=== PATIENT | female | born 1965 | race Caucasian/White ===

== ENCOUNTER 2017-10-31 18:21 | Emergency (ER) | payer MEDICAID | END 2017-10-31 20:50 | disposition home or self-care (01) | LOC: D.ER 18:21 | DX: S22.32XA Fracture of one rib, left side, initial encounter for closed fracture (principal); W00.0XXA Fall on same level due to ice and snow, initial encounter; Y93.89 Activity, other specified; Y92.019 Unspecified place in single-family (private) house as the place of occurrence of the external cause; Z86.73 Personal history of transient ischemic attack (TIA), and cerebral infarction without residual deficits; J44.9 Chronic obstructive pulmonary disease, unspecified ==

== ENCOUNTER → 2019-02-25 13:47 | Outpatient (CLI) | payer MEDICAID | END | disposition home or self-care (01) | LOC: D.RT 13:47 | PROVIDERS: ATTEND Internal Medicine Pulmonary Disease | DX: J44.9 Chronic obstructive pulmonary disease, unspecified (principal) ==

== ENCOUNTER 2019-06-04 07:38 | Day surgery (SDC) | payer MEDICAID ==
[~2019-06-04] VITALS: Ht 152.4 cm; Wt 63.6 kg
[2019-06-04 07:59] LABS: HEMATOCRIT 38.4 % (36.0-48.0); MCH 27.9 pg (26.0-34.0); MCHC 33.9 g/dL (31.0-37.0); MCV 82.4 fL (80.0-100.0); MEAN PLATELET VOLUME 10.4 fL (7.4-10.4); RBC 4.66 10x6/uL (4.00-5.40); RDW 13.1 % (11.5-14.5); WBC 7.2 10x3/uL (4.8-10.8)
[2019-06-04 08:08] LABS: ANION GAP 12.5 mmol/L (8-16); CARBON DIOXIDE 28.9 mmol/L (21.0-32.0); CREATININE - SERUM 0.9 mg/dL (0.6-1.3); POTASSIUM - SERUM 4.4 mmol/L (3.5-5.1)
[2019-06-04 09:11] VITALS: BP 130/79; Ht 152.4 cm; Wt 63.6 kg
[2019-06-04] MEDS ORDERED: PREDNISONE10 MG (09:22)
[2019-06-04] MEDS ORDERED: ZONEGRAN100 MG PO (09:23)
[2019-06-04] MEDS ORDERED: TESSALON PERLE100 MG PO (09:24)
[2019-06-04] MEDS ORDERED: DOXYCYCLINE HY100 M2 PO (09:25)
[2019-06-04] MEDS ORDERED: VALIUM10 MG PO (09:25)
[2019-06-04] MEDS ORDERED: PHENERGAN25 M1 PO (09:26)
[2019-06-04] MEDS ORDERED: BREO ELLIPTA 11 EACH INH (09:26)
--- NOTE | 2019-06-04 11:03 | NUR ---
DC INSTRUCTIONS GIVEN TO PT/FAMILY. STATE UNDERSTANDING. DC'D IV CATH FULLY INTACT.
--- NOTE | 2019-06-04 11:10 | NUR ---
PT LEFT UNIT VIA WC AT 1110
--- NOTE | 2019-06-04 16:30 | OP ---
PATIENT NAME: JUSTINO MCGEE MEDICAL RECORD: [id number] :61 LOCATION:[facility] ADMISSION DATE: SURGEON: ANSELMO CHEN DO DATE OF OPERATION: 06/04/2019 PROCEDURE: EGD with biopsies. INDICATIONS FOR PROCEDURE: Dysphagia, GERD, nausea, and vomiting. SCOPE: Olympus video gastroscope. MEDICATIONS: Propofol 150 mg IV per anesthesia. ESTIMATED BLOOD LOSS: Minimal. COMPLICATIONS: None. FINDINGS: Informed consent was given. The patient was made comfortable with the above medication. After reaching an adequate level of sedation by slow IV push, the patient was placed on her left side. The endoscope was advanced under direct visualization through the mouth to the second portion of the duodenum with ease. The entire esophagus appeared normal down to the GE junction. At the GE junction, there was some mild esophageal stenosis which was traversed. At the end of the procedure, an 18-20 mm CRE dilating balloon was placed through the working channel of the endoscope and the stenosis was dilated up to 20 mm diameter maximum successfully. At the GE junction, there was evidence of LA class C reflux-induced esophagitis. Cold forceps biopsies were taken to submit for histopathology. The endoscope was advanced beyond the GE junction into the stomach and retroflexed to view the cardia, where a small sliding hiatal hernia was present. The fundus of the stomach appeared normal. Throughout the body and antrum of the stomach, there was some erythema, granularity, and congestion consistent with gastritis. Cold forceps, biopsies were taken to submit for histopathology and to rule out the presence of H. pylori. The endoscope was advanced beyond the pylorus into the duodenum, which appeared normal down to the second portion. The endoscope was then withdrawn from the patient. The patient tolerated the procedure well and there were no complications. IMPRESSION: 1. Esophageal ring/stenosis located at the GE junction, status post dilation with a CRE balloon to 20 mm successfully. 2. LA class C reflux-induced esophagitis. 3. Small sliding hiatal hernia. 4. Gastritis. PLAN AND RECOMMENDATIONS: 1. Discharge home when recovery parameters are met. 2. Follow up biopsy specimen results. 3. GERD diet and reflux precautions. 4. Continue omeprazole, but increase to 40 mg in the morning. 5. We will add Zantac or Pepcid in the evening for 30 days. 6. Follow up in the GI clinic in 1 month. 7. Consider manometry study if continued dysphagia. 8. Consider workup of gallbladder and gastric emptying scan if continued nausea and vomiting at followup. OPERATIVE REPORT [id number] MCGEEJUSTINO TRANSINT:[id number] Voice Confirmation ID: [id number] DOCUMENT ID: [id number] ANSELMO CHEN DO at 1630 CC: [id number] DICTATION DATE: 06/04/19 1025 [employer] TECHNICIAN: 06/04/19 1207 [facility] 06/04/19 [facility] [address] [place] [address]
== END 2019-06-04 11:10 | disposition home or self-care (01) ==
LOC: D.OPS 07:38
PROVIDERS: Anesthesiology; ATTEND Internal Medicine Gastroenterology
DX: R13.10 Dysphagia, unspecified (principal); R11.2 Nausea with vomiting, unspecified; K22.2 Esophageal obstruction; K21.0 Gastro-esophageal reflux disease with esophagitis; K29.70 Gastritis, unspecified, without bleeding; K44.9 Diaphragmatic hernia without obstruction or gangrene

== ENCOUNTER → 2019-07-15 08:16 | Outpatient (CLI) | payer MEDICAID ==
[~2019-07-15 08:16] MED LIST: BREO ELLIPTA 11 EACH INH; DOXYCYCLINE HY100 M2 PO; METOPROLOL TART25 MG PO; OMEPRAZOLE40 MG PO; PHENERGAN25 M1 PO; PREDNISONE10 MG; TESSALON PERLE100 MG PO; VALIUM10 MG PO; ZONEGRAN100 MG PO
== END | disposition home or self-care (01) ==
LOC: D.RAD 08:16
PROVIDERS: ATTEND Internal Medicine Gastroenterology
DX: R13.10 Dysphagia, unspecified (principal); K21.9 Gastro-esophageal reflux disease without esophagitis; R10.9 Unspecified abdominal pain

== ENCOUNTER 2019-07-21 08:15 | Day surgery (SDC) | payer MEDICAID ==
[~2019-07-21] VITALS: Ht 152.4 cm; Wt 68.6 kg
[~2019-07-21 08:15] MED LIST changes: -METOPROLOL TART25 MG PO; -OMEPRAZOLE40 MG PO
[2019-07-21 08:57] LABS: HEMATOCRIT 43.6 % (36.0-48.0); HEMOGLOBIN 14.3 g/dL (12-16); MCH 28.2 pg (26.0-34.0); MCHC 32.8 g/dL (31.0-37.0); MEAN PLATELET VOLUME 10.7 fL (7.4-10.4); RBC 5.07 10x6/uL (4.00-5.40); RDW 13.3 % (11.5-14.5); WBC 6.7 10x3/uL (4.8-10.8)
[2019-07-21 09:07] VITALS: BP 142/83; Ht 152.4 cm; Wt 68.6 kg
[2019-07-21 09:08] LABS: CALC OSMOLALITY 272 mosm/kg (275-300); CALCIUM 9.5 mg/dL (8.5-10.1); CARBON DIOXIDE 27.9 mmol/L (21.0-32.0); CHLORIDE - SERUM 103 mmol/L (98-107); CREATININE - SERUM 0.8 mg/dL (0.6-1.3); GLUCOSE 98 mg/dL (74-106); POTASSIUM - SERUM 3.6 mmol/L (3.5-5.1); SODIUM 136 mmol/L (136-145); UREA NITROGEN 14 mg/dL (7-18); eGFR NON AFRICAN AMERICAN 78 mL/min (90-120)
[2019-07-21] MEDS ORDERED: METOPROLOL TART25 MG PO (09:18)
[2019-07-21] MEDS ORDERED: OMEPRAZOLE40 MG PO (09:18)
--- NOTE | 2019-07-21 12:02 | NUR ---
1040 IV DC'D. CATHETER TIP INTACT. PRESSURE HELD UNTIL BLEEDING CEASED. BANDAID APPLIED.
--- NOTE | 2019-07-23 07:36 | OP ---
PATIENT NAME: JUSTINO MCGEE MEDICAL RECORD: [id number] :61 LOCATION:[facility] ADMISSION DATE: SURGEON: ANSELMO CHEN DO DATE OF OPERATION: 07/21/2019 PROCEDURE: Colonoscopy with polypectomy. INDICATIONS FOR PROCEDURE: Diarrhea and generalized abdominal pain. SCOPE: Olympus video pediatric colonoscope. MEDICATIONS: Propofol 280 mg IV per anesthesia. WITHDRAWAL TIME: 9 minutes. ESTIMATED BLOOD LOSS: Minimal. COMPLICATIONS: None. FINDINGS: Informed consent was given. The patient was made comfortable with the above medication. After reaching an adequate level of sedation by slow IV push, the patient was placed on her left side. A digital rectal examination was performed and was normal. The endoscope was then advanced under direct visualization through the rectum to the cecum and terminal ileum. The endoscope was slowly withdrawn and the mucosa was carefully examined. The prep quality was good. There was a single benign-appearing sessile polyp, which measured approximately 4 mm in diameter that was located in the sigmoid colon. It was removed using hot forceps. There was evidence of ryder diverticulosis of mild severity. There was no evidence of diverticulitis. Retroflexion was performed in the rectum with visualization of grade I internal hemorrhoids without bleeding. The endoscope was withdrawn from the patient. The patient tolerated the procedure well and there were no complications. IMPRESSION: 1. Benign appearing sessile polyp located in the sigmoid colon, which was removed using hot forceps. 2. Mild ryder diverticulosis without diverticulitis. 3. Grade I internal hemorrhoids without bleeding. PLAN AND RECOMMENDATIONS: 1. Discharge home when recovery parameters are met. 2. Follow up biopsy specimen results. 3. High fiber diet. 4. Continue current medications. 5. Recall colonoscopy in 5 years for surveillance based on personal history of polyps. 6. The patient should notify the clinic if the diarrhea returns or the abdominal pain returns. Currently, it seems that these symptoms have resolved. TRANSINT:[id number] Voice Confirmation ID: [id number] DOCUMENT ID: [id number] OPERATIVE REPORT [id number] JUSTINO MCGEE ANSELMO CHEN DO at 0736 CC: [id number] DICTATION DATE: 07/21/19 1037 CHIEF FUNDRAISING OFFICER: 07/21/19 1050 [facility] 07/21/19 [facility] [address] [facility] [address]
== END 2019-07-21 11:53 | disposition home or self-care (01) ==
LOC: D.OPS 08:15
PROVIDERS: Anesthesiology; ATTEND Internal Medicine Gastroenterology
DX: K63.5 Polyp of colon (principal); R19.7 Diarrhea, unspecified; R10.9 Unspecified abdominal pain; K57.90 Diverticulosis of intestine, part unspecified, without perforation or abscess without bleeding; K64.8 Other hemorrhoids

== ENCOUNTER → 2019-08-07 09:13 | Outpatient (CLI) | payer MEDICAID ==
[2019-07-21 09:07] VITALS: BMI 29.5
[~2019-08-07 09:13] MED LIST changes: +METOPROLOL TART25 MG PO; +OMEPRAZOLE40 MG PO
== END | disposition home or self-care (01) ==
LOC: D.OPS 09:13
PROVIDERS: ATTEND Internal Medicine Gastroenterology
DX: R13.10 Dysphagia, unspecified (principal); K21.9 Gastro-esophageal reflux disease without esophagitis; R10.9 Unspecified abdominal pain

== ENCOUNTER → 2019-10-03 08:04 | Outpatient (CLI) | payer MEDICAID ==
[2019-07-21 09:07] VITALS: BMI 29.5
== END | disposition home or self-care (01) ==
LOC: D.NM 08:04
PROVIDERS: ATTEND Surgery
DX: K21.0 Gastro-esophageal reflux disease with esophagitis (principal)

== ENCOUNTER 2020-03-10 08:00 | Outpatient (CLI) | payer MEDICAID ==
[2019-10-22 18:34] VITALS: BMI 29.3
[~2020-03-10 08:00] MED LIST changes: +DEPAKOTE250 MG PO; +EFFEXOR XR37.5 MG PO; +HYDROCODON-ACE1 EAC7 PO; +VISTARIL25 MG PO; +ZANAFLEX4 MG PO
== END 2020-03-10 08:01 | disposition home or self-care (01) ==
LOC: D.MAMMO 08:00
PROVIDERS: ATTEND Clinical Nurse Specialist Family Health
DX: Z12.31 Encounter for screening mammogram for malignant neoplasm of breast (principal)

== ENCOUNTER → 2021-01-19 09:43 | Outpatient (CLI) | payer MEDICAID ==
[2019-10-22 18:34] VITALS: BMI 29.3
== END | disposition home or self-care (01) ==
LOC: D.LAB 09:41
PROVIDERS: ATTEND Internal Medicine Pulmonary Disease
DX: J45.909 Unspecified asthma, uncomplicated (principal)

== ENCOUNTER → 2021-01-24 09:20 | Outpatient (CLI) | payer MEDICAID ==
[2019-10-22 18:34] VITALS: BMI 29.3
== END | disposition home or self-care (01) ==
LOC: D.RT 12-06 10:00 → D.RAD 12-06 11:00 → D.RT 09:20
PROVIDERS: ATTEND Internal Medicine Pulmonary Disease
DX: J45.909 Unspecified asthma, uncomplicated (principal)